=== PATIENT | male | born 1955 | race African-American/Black ===

== ENCOUNTER 2017-06-15 09:36 | Outpatient (CLI) | payer BC ==
[2017-06-15 09:48] LABS: Hematocrit 44.7 % (35.5-45.6); Hemoglobin 15.2 gm/dl (11.8-15.2); Mean Corpuscular HGB Conc 34 % (32-34); Mean Corpuscular Hemoglobin 32 pg (28-32); Mean Corpuscular Volume 94 fl (84-94); Platelet Count 186 K/mm3 (140-440); Red Blood Count 4.78 M/mm3 (3.65-5.03); Red Cell Distribution Width 13.3 % (13.2-15.2); White Blood Count 4.8 K/mm3 (4.5-11.0)
[2017-06-15 10:14] LABS: Alanine Aminotransferase 27 units/L (7-56); Albumin 4.2 g/dL (3.9-5); Albumin/Globulin Ratio 1.4 %; Alkaline Phosphatase 65 units/L (35-129); Anion Gap 16 mmol/L; BUN/Creatinine Ratio 13; Blood Urea Nitrogen 12 mg/dL (9-20); Calcium 9.1 mg/dL (8.4-10.2); Carbon Dioxide 28 mmol/L (22-30); Chloride 102.1 mmol/L (98-107); Cholesterol 214 mg/dL (50-199); Glucose 106 mg/dL (75-100); HDL Cholesterol 49 mg/dL (40-59); LDL Cholesterol,Direct 126 mg/dL (50-130); Potassium 4.1 mmol/L (3.6-5.0); Sodium 142 mmol/L (137-145); Total Protein 7.2 g/dL (6.3-8.2); Triglycerides 198 mg/dL (2-149)
== END 2017-06-15 09:37 | disposition home or self-care (01) ==
LOC: LAB 09:36
DX: Z00.00 Encounter for general adult medical examination without abnormal findings (principal)
CPT/HCPCS: 36415; 80053; 80061; 84443; 85027

== ENCOUNTER 2017-06-23 09:30 | Outpatient (CLI) | payer BC | END 2017-06-23 09:31 | disposition home or self-care (01) | LOC: LAB 09:30 | DX: Z12.5 Encounter for screening for malignant neoplasm of prostate (principal) | CPT/HCPCS: 36415; 84153 ==

== ENCOUNTER 2017-08-04 10:05 | Day surgery (SDC) | payer BC ==
[~2017-08-04 10:05] MED LIST: WATER FOR IRRIG STERILE IR ONE
[2017-08-04] MEDS ORDERED: NACL 0.9% 1000 ML 1,000 ML ONE (10:49)
--- NOTE | 2017-08-04 10:55 | Anesthesia Day of Surgery ---
Anesthesia Day of Surgery - Day of Surgery Patient Examined: Yes Patient H&P Reviewed: Yes Patient is NPO: Yes
--- NOTE | 2017-08-04 10:55 | Anesthesia Consultation ---
Anesthesia Consult and Med Hx Date of service: 08/04/17 - Airway Anesthetic Teeth Evaluation: Poor, Chipped ROM Head & Neck: Adequate Mental/Hyoid Distance: Adequate Mallampati Class: Class I Intubation Access Assessment: Good - Pulmonary Exam CTA: Yes - Cardiac Exam Cardiac Exam: RRR - Pre-Operative Health Status ASA Pre-Surgery Classification: ASA1 Proposed Anesthetic Plan: General - Pulmonary Hx Smoking: No
[2017-08-04] MEDS ORDERED: DIPRIVAN 10 MG/ML IV ONE ×3 (11:54→12:29)
--- NOTE | 2017-08-04 11:54 | History and Physical Report ---
HISTORY OF PRESENT ILLNESS: This is a 61-year-old gentleman in otherwise good health who has been complaining of some abdominal pain and discomfort which is usually worsened with food. Also, because of his age, he is being assessed for a colonoscopy as part of colon polyp screening. His last colonoscopy was more than 10 years ago. He needs to have an EGD and a colonoscopy done. ALLERGIES: He has no known allergies. SOCIAL HISTORY: Rarely drinks alcohol. No history of smoking. He has had his flu shots. MEDICATIONS: His only medication includes low dose aspirin. FAMILY HISTORY: The patient's mother had a history of lung cancer. PHYSICAL EXAMINATION: VITAL SIGNS: He is afebrile, blood pressure 145/108, pulse is 64. Height is 6 feet, weight is 207 pounds. HEENT: Shows no JVD. LUNGS: Clear to auscultation. CARDIOVASCULAR: Normal. ABDOMEN: Soft. Bowel sounds present. NEUROLOGIC: He is otherwise alert and oriented. ASSESSMENT AND PLAN: Epigastric pain, rule out peptic ulcer disease, and colon polyp screening. Plan to do an EGD and a colonoscopy at [facility] on 08/04/2017. JOB# [id number] BRISEYDA/KONG
[2017-08-04] MEDS ORDERED: WATER FOR IRRIG STERILE ONE (11:56)
[2017-08-04] MEDS ORDERED: NACL 0.9% 1000 ML 1,000 ML IV SCH (12:00)
--- NOTE | 2017-08-04 12:47 | Procedure Note ---
Date of procedure: 08/04/17 Pre-op diagnosis: Abdominal Pain/ Colon Polyp Screening Post-op diagnosis: other (Gastric Ulcer/Gastritis/Esophagitis/No Colon Polyps noted/Mild to Moderate Internal Hemorrhoids noted/ No Diverticular Disease noted ) Anesthesia: MAC Surgeon: ELVIS GAYTAN Estimated blood loss: minimal Pathology: list Specimen disposition: to lab Condition: stable Disposition: same day (Avoid aspirin and aspirin related products for 4 days and follow up in 1 to 2 weeks ([phone]). Treat patient with Omeprazole)
[2017-08-04 13:19] VITALS: BP 127/76
--- NOTE | 2017-08-04 14:12 | Post Anesthesia Evaluation ---
- Post Anesthesia Evaluation Patient Participated: Yes Airway Patent: Yes Stable Respiratory Function: Yes Nausea/Vomiting: No Temp > 96.8F: Yes Pain Manageable: Yes Adequeate Hydration: Yes Anesthesia Complications: No
[2017-08-04] MEDS ORDERED: WATER FOR IRRIG STERILE IR ONE (14:52)
--- NOTE | 2017-08-04 19:20 | Operative Report ---
A 61-year-old gentleman who had a colonoscopy done as part of colon polyp screening. DESCRIPTION OF PROCEDURE: The procedure was done after getting informed consent with MAC anesthesia. Initial rectal exam was unremarkable. Instrument was passed through the rectum into the cecum, which was identified with ileocecal valve and appendiceal orifice. Visualization was fair to good. Cecum, ascending colon, transverse colon, descending colon and sigmoid showed normal mucosa. In the rectum showed mild to moderate internal hemorrhoids on the retroverted view. There was no evidence of any polyps, colitis or diverticular disease. No biopsies were done. There was no bleeding associated with the colonoscopy or no complications with the colon. ASSESSMENT: Colon polyp screening, no colon polyps noted and mild to moderate internal hemorrhoids. Previous EGD had shown presence of a gastric ulcer, gastritis and esophagitis. The patient will be treated with PPI. Encouraged to take probiotics. Avoid aspirin and aspirin-related products for the next few days and follow up in the office in about a week's time. JOB# [id number] BRISEYDA/KONG
--- NOTE | 2017-08-05 02:24 | Operative Report ---
PROCEDURE: EGD with biopsy. INDICATIONS: This is a 61-year-old otherwise healthy gentleman who does have a history of taking aspirin on a regular basis, who lately has been having abdominal pain worsened with intake of food. EGD was done to make sure there was not any significant upper GI pathology present. The procedure was done after getting an informed consent with MAC anesthesia. DESCRIPTION OF PROCEDURE: Instrument was passed through the hypopharynx into the esophagus, which showed moderate distal erosive esophagitis. Photodocumentation and biopsy was obtained. Clean based 4 x 3 mm ulcer was noted in the lesser curvature. Photodocumentation and biopsies were obtained from the edge of the ulcer. The pylorus was patent. The duodenum in the first and second portion appeared normal. Biopsy was also done from the gastric antrum, the gastric body, and angular incisure for H. pylori and atrophic gastritis. There was minimal bleeding from the biopsy site. No complications associated with the procedure. ASSESSMENT: Abdominal pain, gastric ulcer in the lesser curvature, gastritis, moderate distal erosive esophagitis, patent pylorus. PLAN: To treat the patient with PPI and have the patient avoid aspirin and aspirin-related products for the next few days. Because of the patient's age, a colonoscopy will also be done as part of colon polyp screening. JOB# [id number] BRISEYDA/KONG
== END 2017-08-04 10:06 | disposition home or self-care (01) ==
LOC: GIO 10:05
DX: Z12.11 Encounter for screening for malignant neoplasm of colon (principal); K25.9 Gastric ulcer, unspecified as acute or chronic, without hemorrhage or perforation
CPT/HCPCS: 43239; 45378; 88305; 88342; J2704; J7030

== ENCOUNTER 2018-01-04 10:52 | Outpatient (CLI) | payer BC ==
--- NOTE | 2018-01-05 01:15 | Treadmill Report ---
THALLIUM STRESS TEST REPORT REASON FOR ECHO: The patient exercised for 11 minutes of a Rajiv protocol, reaching stage 4 and achieving 12 mets. There was no chest pain with exercise. Heart rate and blood pressure response were normal. There were no ST changes of ischemia. No significant exercise-induced dysrhythmias. The perfusion study demonstrates normal left ventricular chamber size, gated SPECT demonstrates normal left ventricular systolic function with ejection fraction of 53%. There is homogeneous uptake of the tracer with a small fixed basal inferior defect, worse on the resting study. No reversible defects identified. CONCLUSION: 1. Very good exercise capacity. 2. No chest pain, no ST changes, and no dysrhythmias at high level exercise capacity. 3. Small fixed basal inferior defect appears consistent with diaphragmatic attenuation artifact. 4. No reversible ischemia demonstrated on this study. 5. Negative study. JOB# [id number] CA/NTS
== END 2018-01-04 10:53 | disposition home or self-care (01) ==
LOC: CARD 10:52
PROVIDERS: ATTEND Internal Medicine Cardiovascular Disease
DX: R55 Syncope and collapse (principal); R00.1 Bradycardia, unspecified; E78.5 Hyperlipidemia, unspecified; I63.9 Cerebral infarction, unspecified
CPT/HCPCS: 78452; 93017; A9502

== ENCOUNTER 2018-04-09 07:15 | Outpatient (CLI) | payer BC ==
[2018-04-09 08:08] LABS: Chol/HDL Ratio 4.52 %
== END 2018-04-09 07:16 | disposition home or self-care (01) ==
LOC: LAB 07:15
PROVIDERS: ATTEND Internal Medicine
DX: Z00.01 Encounter for general adult medical examination with abnormal findings (principal); R73.9 Hyperglycemia, unspecified; E78.5 Hyperlipidemia, unspecified; E55.9 Vitamin D deficiency, unspecified; E78.00 Pure hypercholesterolemia, unspecified
CPT/HCPCS: 36415; 80061; 82306; 83036; 84439; 84443

== ENCOUNTER 2018-12-13 09:07 | Outpatient (CLI) | payer BC ==
[2018-12-13 10:27] LABS: Hematocrit 46.6 % (35.5-45.6); Mean Corpuscular HGB Conc 34 % (32-34); Mean Corpuscular Volume 95 fl (84-94); Platelet Count 196 K/mm3 (140-440); Red Blood Count 4.93 M/mm3 (3.65-5.03); Red Cell Distribution Width 13.6 % (13.2-15.2)
[2018-12-13 11:17] LABS: Alanine Aminotransferase 17 units/L (7-56); Albumin 4.3 g/dL (3.9-5); BUN/Creatinine Ratio 16; Blood Urea Nitrogen 16 mg/dL (9-20); Calcium 9.3 mg/dL (8.4-10.2); Chol/HDL Ratio 4.05 %; HDL Cholesterol 51 mg/dL (40-59); Hemolysis Index 3; LDL Cholesterol,Direct 142 mg/dL (50-130)
[2018-12-17 20:53] LABS: Vitamin D, 25-OH, D2 <4 ng/mL
== END 2018-12-13 09:08 | disposition home or self-care (01) ==
LOC: LAB 09:07
PROVIDERS: ATTEND Internal Medicine
DX: Z13.29 Encounter for screening for other suspected endocrine disorder (principal); Z13.21 Encounter for screening for nutritional disorder; E78.5 Hyperlipidemia, unspecified; R73.03 Prediabetes
CPT/HCPCS: 36415; 80053; 80061; 82306; 82607; 83036; 84153; 84443; 85027

== ENCOUNTER 2019-03-22 06:31 | Emergency (ER) | payer BC ==
[2019-03-22 06:40] VITALS: BP 128/85
[2019-03-22] MEDS ORDERED: DEPO-Medrol IM ONE (07:19)
[2019-03-22] MEDS ORDERED: PEPCID PO ONE (07:19)
--- NOTE | 2019-03-22 07:19 | Emergency Department Report ---
HPI - General Chief Complaint: Allergic Reaction Time Seen by Provider: 03/22/19 07:09 - HPI HPI: 63 YO WHO COMES IN WITH GENERALIZED URTICARIAL RASH P EATING A PROTEIN BAR; THE BAR IS NEW OVER THE LAST FEW DAYS. NO OTHER KNOWN ALLERGEN. ABC INTACT. VSS. NO SOB OR WHEEZING. AMBULATORY. TOOK BENADRYL AND PREDNISONE POST DOC FELLOWSHIP. ED Past Medical Hx - Past Medical History Previous Medical History?: No Hx Hypertension: ("ELEVATED IN DOCTOR OFFICE, NO OFFICIAL DIAGNOSIS") Hx Congestive Heart Failure: No Hx Diabetes: No (ELEVATED A1C, NO OFFICIAL DIAGNOSIS) Hx Asthma: No Hx COPD: No - Surgical History Past Surgical History?: Yes Additional Surgical History: cervical surgery for neck fx - Family History Family history: no significant - Social History Smoking Status: Current Some Day Smoker Substance Use Type: None - Medications Home Medications: Home Medications Medication Instructions Recorded Confirmed Last Taken Type Acyclovir [Zovirax Tab] 400 mg PO Q8H 11/08/17 11/08/17 11/08/17 History Fenofibrate [Lipofen] 50 mg PO QDAY 11/08/17 11/08/17 11/08/17 History Multivitamin Tab [Multiple Vitamin 1 each PO QDAY 11/08/17 11/08/17 11/08/17 History TAB (Theragran)] [facility]-3 Fatty Acids/Fish Oil [Fish 1 each PO DAILY 11/08/17 11/08/17 11/08/17 History Oil] ED Review of Systems ROS: Stated complaint: ALLERGIC REACTION Other details as noted in HPI Comment: All other systems reviewed and negative Physical Exam - Physical Exam Vital Signs: Vital Signs 03/22/19 06:38 Temperature 97.7 F Pulse Rate 98 H Respiratory 18 Rate Blood Pressure 128/85 O2 Sat by Pulse 91 Oximetry Physical Exam: ABC INTACT S1S2 LUNGS CTA NO FOCAL DEF AMBULATORY ED Course Vital Signs 03/22/19 06:38 Temperature 97.7 F Pulse Rate 98 H Respiratory 18 Rate Blood Pressure 128/85 O2 Sat by Pulse 91 Oximetry ED Medical Decision Making - Medical Decision Making GIVEN DEPOMEDROL AND PEPCID VSS ABC INTACT SAT ON PROVIDER EXAM 99 ON ROOM AIR; HR 90 DC HOME WITH DC PLAN OF CARE. Vital Signs 03/22/19 06:38 Temperature 97.7 F Pulse Rate 98 H Respiratory 18 Rate Blood Pressure 128/85 O2 Sat by Pulse 91 Oximetry - Differential Diagnosis ALLERGIC REACTION Critical care attestation.: If time is entered above; I have spent that time in minutes in the direct care of this critically ill patient, excluding procedure time. ED Disposition Clinical Impression: Allergic reaction Disposition: DC-01 TO HOME OR SELFCARE Is pt being admited?: No Does the pt Need Aspirin: No Condition: Stable Instructions: Allergies (ED) Additional Instructions: CONTINUE OVER THE COUNTER BENADRYL AND PEPCID TO DECREASE HISTAMINE AND ITCHING FOLLOW UP WITH PCP OR PRINCIPAL CLOUD ARCHITECT IF PERSISTS Referrals: TOMMY LOVE MD [Staff Physician] - 3-5 Days Time of Disposition: 07:20
== END 2019-03-22 08:06 | disposition home or self-care (01) ==
LOC: ED 06:31
DX: T78.40XA Allergy, unspecified, initial encounter (principal); F17.200 Nicotine dependence, unspecified, uncomplicated; Z79.899 Other long term (current) drug therapy; Z91.013 Allergy to seafood; Z88.6 Allergy status to analgesic agent
CPT/HCPCS: 96372; 99282; J1040

== ENCOUNTER 2019-09-10 15:04 | Emergency (ER) | payer BC ==
--- NOTE | 2019-09-10 15:27 | Emergency Department Report ---
Blank Doc - Documentation Documentation: 63-year-old male that presents with right femur pain s/p fall. This initial assessment/diagnostic orders/clinical plan/treatment(s) is/are subject to change based on patient's health status, clinical progression and re- assessment by fellow clinical providers in the ED. Further treatment and workup at subsequent clinical providers discretion. Patient/guardians urged not to elope from the ED as their condition may be serious if not clinically assessed and managed. Initial orders include: 1- Patient sent to [facility] for further evaluation and treatment 2- xrays
[2019-09-10 15:28] VITALS: BP 142/87
--- NOTE | 2019-09-10 16:26 | XRay Report ---
RIGHT FEMUR HISTORY: Pain after fall. COMPARISON: None. TECHNIQUE: 2 views of the right femur were obtained. FINDINGS: Bones: No fracture or dislocation. Joint spaces: Maintained. Soft tissues: No significant abnormality. Additional findings: None. IMPRESSION: 1. No significant abnormality. Signer Name: Eren Akers MD Signed: 09/10/2019 4:21 PM Workstation Name: [id number]
--- NOTE | 2019-09-10 19:28 | Emergency Department Report ---
ED Lower Extremity HPI - General Chief Complaint: Fall Stated Complaint: FALL INJURY/ RT FIMER PAIN Time Seen by Provider: 09/10/19 15:26 Source: patient Mode of arrival: Ambulatory Limitations: No Limitations - History of Present Illness Initial Comments: Patient is a 63-year-old male presents the emergency room after a fall that occurred 2 days ago. He states that he was working in the [employer] and fell partially between the attic stairs. He states he fell onto his right lateral thigh. He denies any abrasions or lacerations. He denies any loss of consciousness and did not hit his head. He has been ambulatory with some discomfort upon incline or walking up the steps. He denies ever injuring in the past. He denies any past medical history or allergies to medications. pt states he took ibuprofen at home two days ago and did not have a reaction. he states he has also eaten shellfish and not had a reaction. - Related Data Home Medications Medication Instructions Recorded Confirmed Last Taken Acyclovir [Zovirax Tab] 400 mg PO Q8H 11/08/17 11/08/17 11/08/17 Fenofibrate [Lipofen] 50 mg PO QDAY 11/08/17 11/08/17 11/08/17 Multivitamin Tab [Multiple Vitamin 1 each PO QDAY 11/08/17 11/08/17 11/08/17 TAB (Theragran)] [place]-3 Fatty Acids/Fish Oil [Fish 1 each PO DAILY 11/08/17 11/08/17 11/08/17 Oil] Previous Rx's Medication Instructions Recorded Last Taken Type Naproxen [EC-Naprosyn] 375 mg PO BID PRN #14 tablet. 09/10/19 Unknown Rx Tizanidine HCl [Zanaflex 2mg CAP] 2 mg PO QHS PRN #10 capsule 09/10/19 Unknown Rx Allergies Allergy/AdvReac Type Severity Reaction Status Date / Time shellfish derived Allergy Rash Verified 08/04/17 11:06 ibuprofen AdvReac Rash Verified 08/04/17 11:06 ED Review of Systems ROS: Stated complaint: FALL INJURY/ RT FIMER PAIN Other details as noted in HPI Comment: All other systems reviewed and negative ED Past Medical Hx - Past Medical History Previous Medical History?: No Hx Hypertension: ("ELEVATED IN DOCTOR OFFICE, NO OFFICIAL DIAGNOSIS") Hx Congestive Heart Failure: No Hx Diabetes: (ELEVATED A1C, NO OFFICIAL DIAGNOSIS) Hx Asthma: No Hx COPD: No - Surgical History Past Surgical History?: Yes Additional Surgical History: cervical surgery for neck fx, C4 and C5 - Social History Smoking Status: Never Smoker Substance Use Type: Alcohol - Medications Home Medications: Home Medications Medication Instructions Recorded Confirmed Last Taken Type Acyclovir [Zovirax Tab] 400 mg PO Q8H 11/08/17 11/08/17 11/08/17 History Fenofibrate [Lipofen] 50 mg PO QDAY 11/08/17 11/08/17 11/08/17 History Multivitamin Tab [Multiple Vitamin 1 each PO QDAY 11/08/17 11/08/17 11/08/17 History TAB (Theragran)] [place]-3 Fatty Acids/Fish Oil [Fish 1 each PO DAILY 11/08/17 11/08/17 11/08/17 History Oil] Naproxen [EC-Naprosyn] 375 mg PO BID PRN #14 tablet.dr 09/10/19 Unknown Rx Tizanidine HCl [Zanaflex 2mg CAP] 2 mg PO QHS PRN #10 capsule 09/10/19 Unknown Rx ED Physical Exam - General Limitations: No Limitations General appearance: alert, in no apparent distress - Head Head exam: Present: atraumatic, normocephalic - Eye Eye exam: Present: normal appearance - ENT ENT exam: Present: mucous membranes moist - Extremities Exam Extremities exam: Present: other (ttp over the right lateral thigh, FROM of the RLE, no obvious deformity, no joint laxity, neurovascularly intact) - Neurological Exam Neurological exam: Present: alert, oriented X3 - Psychiatric Psychiatric exam: Present: normal affect, normal mood - Skin Skin exam: Present: warm, dry, intact ED Course Vital Signs 09/10/19 15:27 Temperature 97.5 F L Pulse Rate 72 Respiratory 20 Rate Blood Pressure 142/87 O2 Sat by Pulse 97 Oximetry ED Lower Extremity MDM - Radiology Data Radiology results: report reviewed Fluoro Time In Minutes: RIGHT FEMUR HISTORY: Pain after fall. COMPARISON: None. TECHNIQUE: 2 views of the right femur were obtained. FINDINGS: Bones: No fracture or dislocation. Joint spaces: Maintained. Soft tissues: No significant abnormality. Additional findings: None. IMPRESSION: 1. No significant abnormality. Signer Name: Eren Lebron MD Signed: 09/10/2019 4:21 PM Workstation Name: [id number] Transcribed By: REF Dictated By: EREN LEBRON MD Electronically Authenticated By: EREN LEBRON MD Signed Date/Time: 09/10/191620 DD/ 19 TD/TT: - Medical Decision Making Patient is a 63-year-old male presents the emergency room after a fall that occurred 2 days ago. He states that he was working in the [employer] and fell partially between the attic stairs. He states he fell onto his right lateral thigh. He denies any abrasions or lacerations. He denies any loss of consciousness and did not hit his head. He has been ambulatory with some discomfort upon incline or walking up the steps. He denies ever injuring in the past. He denies any past medical history or allergies to medications. pt states he took ibuprofen at home two days ago and did not have a reaction. he states he has also eaten shellfish and not had a reaction. on exam: ttp over the right lateral thigh, FROM of the RLE, no obvious deformity, no joint laxity, neurovascularly intact. XR right femur: 1. No significant abnormality. given prescription for naproxen and flexeril. advised to pt please take medication as prescribed as needed. Do not drive or operate heavy machinery while taking muscle relaxer due to potential for drowsiness. May use ice for 15 minutes at a time, rest, stretching, elevation of the leg. Follow-up with orthopedic doctor if symptoms are not improving. Return to the emergency room immediately for any new or worsening symptoms. - Differential Diagnosis strain, sprain, fx, dislocation, contusion Critical care attestation.: If time is entered above; I have spent that time in minutes in the direct care of this critically ill patient, excluding procedure time. ED Disposition Clinical Impression: Pain of right lateral upper thigh Disposition: DC-01 TO HOME OR SELFCARE Is pt being admited?: No Does the pt Need Aspirin: No Condition: Stable Instructions: Muscle Strain (ED), Arthralgia (ED) Additional Instructions: Please take medication as prescribed as needed. Do not drive or operate heavy machinery while taking muscle relaxer due to potential for drowsiness. May use ice for 15 minutes at a time, rest, stretching, elevation of the leg. Follow-up with orthopedic doctor if symptoms are not improving. Return to the emergency room immediately for any new or worsening symptoms. Prescriptions: Tizanidine HCl [Zanaflex 2mg CAP] 2 mg PO QHS PRN #10 capsule PRN Reason: Muscle Spasm Naproxen [EC-Naprosyn] 375 mg PO BID PRN #14 tablet.dr SOTO Reason: pain Referrals: ANNETTE KRISHNAMURTHY MD [Staff Physician] - 2-3 Days Time of Disposition: 19:28 Print Language: LATVIAN
== END 2019-09-10 19:35 | disposition home or self-care (01) ==
LOC: ED 15:04
DX: M79.651 Pain in right thigh (principal); I10 Essential (primary) hypertension; Z79.899 Other long term (current) drug therapy; Z91.010 Allergy to peanuts; Z88.6 Allergy status to analgesic agent

== ENCOUNTER 2019-12-19 10:32 | Outpatient (CLI) | payer BC ==
[2019-12-19 11:06] LABS: Basophils % (Auto) 0.9 % (0.0-1.8); Eosinophils # (Auto) 0.1 K/mm3 (0.0-0.4); Hemoglobin 15.4 gm/dl (11.8-15.2); Lymphocytes # (Auto) 1.6 K/mm3 (1.2-5.4); Lymphocytes % (Auto) 41.4 % (13.4-35.0); Mean Corpuscular HGB Conc 34 % (32-34); Mean Corpuscular Volume 93 fl (84-94); Monocytes # (Auto) 0.6 K/mm3 (0.0-0.8); Monocytes % (Auto) 14.1 % (0.0-7.3); Platelet Count 183 K/mm3 (140-440); Red Blood Count 4.93 M/mm3 (3.65-5.03); Red Cell Distribution Width 13.3 % (13.2-15.2)
[2019-12-19 11:47] LABS: Alanine Aminotransferase 19 units/L (7-56); Albumin 4.5 g/dL (3.9-5); BUN/Creatinine Ratio 18; Blood Urea Nitrogen 18 mg/dL (9-20); Calcium 9.6 mg/dL (8.4-10.2); Chol/HDL Ratio 3.94 %; HDL Cholesterol 51 mg/dL (40-59); Hemolysis Index 3; LDL Cholesterol,Direct 134 mg/dL (50-130)
[2019-12-22 11:58] LABS: Vitamin D, 25-OH, D2 <4 ng/mL
== END 2019-12-19 10:33 | disposition home or self-care (01) ==
LOC: LAB 10:32
PROVIDERS: ATTEND Internal Medicine
DX: Z12.5 Encounter for screening for malignant neoplasm of prostate (principal); Z13.29 Encounter for screening for other suspected endocrine disorder; Z13.21 Encounter for screening for nutritional disorder; R73.03 Prediabetes; E78.5 Hyperlipidemia, unspecified
CPT/HCPCS: 36415; 80053; 80061; 82306; 82607; 83036; 84153; 84443; 85025

== ENCOUNTER 2020-12-22 09:35 | Outpatient (CLI) | payer BC ==
[2020-12-22 10:15] LABS: Basophils % (Auto) 0.8 % (0.0-1.8); Eosinophils # (Auto) 0.1 K/mm3 (0.0-0.4); Eosinophils % (Auto) 2.5 % (0.0-4.3); Hematocrit 46.9 % (35.5-45.6); Lymphocytes # (Auto) 1.4 K/mm3 (1.2-5.4); Lymphocytes % (Auto) 23.4 % (13.4-35.0); Mean Corpuscular HGB Conc 34 % (32-34); Mean Corpuscular Volume 94 fl (84-94); Monocytes # (Auto) 0.7 K/mm3 (0.0-0.8); Monocytes % (Auto) 12.4 % (0.0-7.3); Platelet Count 202 K/mm3 (140-440); Red Blood Count 5.02 M/mm3 (3.65-5.03); Red Cell Distribution Width 13.7 % (13.2-15.2)
[2020-12-22 10:38] LABS: Alanine Aminotransferase 22 units/L (7-56); Albumin 4.7 g/dL (3.9-5); BUN/Creatinine Ratio 23; Blood Urea Nitrogen 23 mg/dL (9-20); Calcium 10.1 mg/dL (8.4-10.2); HDL Cholesterol 56 mg/dL (40-59); Hemolysis Index 12; LDL Cholesterol,Direct 159 mg/dL (50-130)
[2020-12-25 16:17] LABS: Vitamin D, 25-OH, D2 <4 ng/mL
== END 2020-12-22 09:36 | disposition home or self-care (01) ==
LOC: LAB 09:35
PROVIDERS: ATTEND Internal Medicine
DX: Z00.00 Encounter for general adult medical examination without abnormal findings (principal); R73.03 Prediabetes; E78.5 Hyperlipidemia, unspecified; Z13.21 Encounter for screening for nutritional disorder; Z12.5 Encounter for screening for malignant neoplasm of prostate
CPT/HCPCS: 36415; 80053; 80061; 82306; 83036; 84153; 84443; 85025

== ENCOUNTER 2021-01-15 10:20 | Day surgery (SDC) | payer BC ==
[~2021-01-15 10:20] MED LIST changes: +SODIUM CHLORIDE 0.9% 1000 ML 1,000 ML IV SCH; -WATER FOR IRRIG STERILE IR ONE
--- NOTE | 2021-01-15 11:20 | Anesthesia Consultation ---
Anesthesia Consult and Med Hx Date of service: 01/15/21 - Airway Anesthetic Teeth Evaluation: Good ROM Head & Neck: Adequate Mental/Hyoid Distance: Adequate Mallampati Class: Class III Intubation Access Assessment: Possibly Difficult - Pre-Operative Health Status ASA Pre-Surgery Classification: ASA1 Proposed Anesthetic Plan: MAC - Pulmonary Hx Smoking: No Hx Respiratory Symptoms: No - Cardiovascular System Hx Hypertension: No - Central Nervous System CVA: No - Endocrine Hx Renal Disease: No Hx Liver Disease: No Hx Insulin Dependent Diabetes: No Hx Non-Insulin Dependent Diabetes: No Hx Thyroid Disease: No - Other Systems Hx Obesity: No - Additional Comments Anesthesia Medical History Comments: No hx anesthetic complications. Reports no allergy to ibuprofen; only to ibuprofen with blue dye.
--- NOTE | 2021-01-15 11:20 | Anesthesia Day of Surgery ---
Anesthesia Day of Surgery - Day of Surgery Patient Examined: Yes Patient H&P Reviewed: Yes Patient is NPO: Yes
[2021-01-15] MEDS ORDERED: propofoL 200 MG/20 ML VIAL IV ONE ×4 (12:37→13:22)
--- NOTE | 2021-01-15 14:02 | Procedure Note ---
Date of procedure: 01/15/21 Pre-op diagnosis: Dyspepsia/ H/O Gastric Ulcer/ Colon Polyp Screening Post-op diagnosis: other (No Gastric Ulcer at present/ Mild,Distal Esophagitis/ Small,Hiatal Hernia/ Gastrtitis/ Normal Colon and terminal Ileal Mucosa/ No colon Polyp or Divertyicular Disease noted/ Minor Internal Hemorrhoid) Procedure: EGD with Biopsy and Colonoscopy Anesthesia: [facility] Surgeon: ELVIS GAYTAN Estimated blood loss: minimal Pathology: list Specimen disposition: to lab Condition: stable Disposition: same day (Avoid aspirin and NSAID for 4 days; otherwise resume home medication. Treat with PPI; follow up in 1 to 2 weeks ([phone]).)
--- NOTE | 2021-01-15 15:37 | Operative Report ---
DATE OF SURGERY: 01/15/2021 PROCEDURE: Colonoscopy. INDICATIONS: This is a 65-year-old gentleman who had EGD done prior to the colonoscopy. He has a prior history of gastric ulcer, but none at present. He was noted to have mild distal esophagitis, gastritis and a small hiatal hernia. Biopsy was done to rule out for H. pylori and also to assess for the severity of the erosive esophagitis. Colonoscopy was done to make sure there was not any colon polyp present. Initial rectal examination was unremarkable. DESCRIPTION OF PROCEDURE: The instrument was passed through the rectum onto the cecum, which was identified with ileocecal valve and appendiceal orifice. Visualization was fair to good. The terminal ileum was intubated, showed normal mucosa. Cecum, ascending colon, transverse colon, descending colon and sigmoid, all showed normal mucosa and the rectum showed some minor internal hemorrhoid on the retroverted view. There was no colon polyps, or diverticular disease noted. The terminal ileum showed normal mucosa. There was no bleeding associated with the colonoscopy. ASSESSMENT: Colon polyp screening, no colon polyps noted. Minor internal hemorrhoid. No diverticular disease. Normal terminal ileal mucosa. PLAN: To resume home medication. The patient will be asked to take PPI for about 12 weeks because of the EGD findings of esophagitis and gastritis. To avoid aspirin and aspirin-related products for the next 4 days and follow up in the office in 1-2 weeks' time. TID: [id number] RECEIPT: [id number] BRISEYDA/KADIE
--- NOTE | 2021-01-15 15:37 | Operative Report ---
DATE OF SURGERY: 01/15/2021 PROCEDURE: EGD with biopsy. INDICATIONS: This is a 65-year-old gentleman who has a prior history of a gastric ulcer and H. pylori gastritis. He had been having some dyspeptic symptoms. EGD was done to assess for the problem. DESCRIPTION OF PROCEDURE: Procedure was done after getting informed consent with MAC anesthesia. Instrument was passed through the hypopharynx into the esophagus, which showed some mild distal esophagitis. Biopsy was done from the distal esophagus to assess for the severity of the erosive esophagitis. The stomach showed gastritis, but no ulcers were noted either in the straight or the retroverted view. The patient has a prior history of H. pylori. Biopsies were done from the gastric antrum, gastric body and angular incisura to rule out for H. pylori as well as for atrophic gastritis. The pylorus was patent. The duodenum in the first and second portion appeared normal. There was no evidence of any duodenal ulcer noted. There was minimal bleeding from the biopsy sites. No complications associated with the procedure. ASSESSMENT: Dyspepsia; history of gastric ulcer, none now; gastritis; esophagitis which is mild; small hiatal hernia. PLAN: To treat the patient with PPI. Have the patient avoid aspirin or aspirin-related products for the next few days. A colonoscopy will be done as part of colon polyp screening. The patient will be asked to follow up in the office in 1-2 weeks' time. Procedure was done in the GI lab with assistance of the GI lab team, which included the GI nurse, the fish and wildlife technician and with assistance of Anesthesia. TID: [id number] RECEIPT: [id number] BRISEYDA/NETTA
[2021-01-15 16:12] VITALS: BP 119/73
== END 2021-01-15 10:21 | disposition home or self-care (01) ==
LOC: GIO 10:20
DX: K59.04 Chronic idiopathic constipation (principal); R10.13 Epigastric pain; K64.8 Other hemorrhoids; K44.9 Diaphragmatic hernia without obstruction or gangrene; K29.70 Gastritis, unspecified, without bleeding; K31.89 Other diseases of stomach and duodenum; E78.5 Hyperlipidemia, unspecified; Z91.013 Allergy to seafood; Z79.899 Other long term (current) drug therapy; Z98.890 Other specified postprocedural states; Z86.73 Personal history of transient ischemic attack (TIA), and cerebral infarction without residual deficits
CPT/HCPCS: 43239; 45378; 88305; 88342; J2704; J7030

== ENCOUNTER 2021-03-09 07:03 | Outpatient (CLI) | payer BC ==
--- NOTE | 2021-03-09 09:12 | Magnetic Resonance Report ---
MRI LEFT KNEE WITHOUT CONTRAST INDICATION / CLINICAL INFORMATION: DISLOCATION OF LEFT KNEE. TECHNIQUE: Multiplanar, multisequence MR images were obtained. No contrast used. COMPARISON: None available. FINDINGS: MEDIAL MENISCUS: There is a degenerative type radial/horizontal tear involving the posterior horn and body. The body is partially extruded. LATERAL MENISCUS: There is a degenerative tear at the lateral meniscus posterior horn/root. The body is partially extruded. ACL: Mucoid degeneration. PCL: Mucoid degeneration. MCL: No significant abnormality. LCL: No significant abnormality. DISTAL IT BAND: No significant abnormality. POSTEROLATERAL CORNER: No significant abnormality. DISTAL QUADRICEPS TENDON: Mild distal quadriceps tendinosis. PATELLAR TENDON: No significant abnormality. PATELLOFEMORAL ALIGNMENT: No significant abnormality. ARTICULAR CARTILAGE: Diffuse chondrosis. There is advanced cartilage loss at the patella. JOINT SPACE: No significant joint effusion or synovitis. No significant popliteal cyst. No intra-shady cular bodies. BONES: No significant bone marrow edema. No fracture. No osseous lesion. SOFT TISSUES: No significant abnormality. ADDITIONAL FINDINGS: None. IMPRESSION: 1. No MRI evidence of recent dislocation. 2. 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 Signer Name: Jon Cabrera MD Signed: 03/09/2021 9:07 AM Workstation Name: [id number]
== END 2021-03-09 07:04 | disposition home or self-care (01) ==
LOC: MRI 07:03
PROVIDERS: ATTEND Internal Medicine
DX: S83.105A Unspecified dislocation of left knee, initial encounter (principal); S83.282A Other tear of lateral meniscus, current injury, left knee, initial encounter; S83.242A Other tear of medial meniscus, current injury, left knee, initial encounter; M17.12 Unilateral primary osteoarthritis, left knee; X58.XXXA Exposure to other specified factors, initial encounter; Y93.89 Activity, other specified; Y92.89 Other specified places as the place of occurrence of the external cause; Y99.8 Other external cause status
CPT/HCPCS: 73721

== ENCOUNTER 2021-03-23 14:03 | Outpatient (CLI) | payer BC ==
--- NOTE | 2021-03-23 14:53 | XRay Report ---
RIGHT KNEE HISTORY: Pain COMPARISON: None. TECHNIQUE: 2 views of the right knee obtained. FINDINGS: Bones: No acute fracture or dislocation. Mild patellofemoral osteoarthritic change. Joint spaces: Maintained. Soft tissues: No significant abnormality. Additional findings: None. IMPRESSION: Right knee without evidence of acute osseous injury. Mild patellofemoral osteoarthritic change. Signer Name: Eliel Jang MD Signed: 03/23/2021 2:49 PM Workstation Name: [id number]
== END 2021-03-23 14:04 | disposition home or self-care (01) ==
LOC: XRAY 14:03
PROVIDERS: ATTEND Internal Medicine
DX: M17.11 Unilateral primary osteoarthritis, right knee (principal)

== ENCOUNTER 2021-03-29 07:06 | Outpatient (CLI) | payer BC ==
--- NOTE | 2021-03-29 09:22 | Magnetic Resonance Report ---
MRI RIGHT KNEE WITHOUT CONTRAST INDICATION / CLINICAL INFORMATION: UNSPECIFIED SUBLUXATION OF RIGHT KNEE,INITIAL ENCOUNTER S83.101A. COMPARISON: Right knee films dated 03/23/2021 TECHNIQUE: Multiplanar, multisequence MR images were obtained. FINDINGS: ACL: No significant abnormality. PCL: No significant abnormality. DISTAL QUADRICEPS TENDON: No significant abnormality. PATELLAR TENDON: No significant abnormality. MEDIAL MENISCUS: There is a complex tear in the body of the medial meniscus with medial extrusion of meniscal tissue. LATERAL MENISCUS: No significant abnormality. POSTEROLATERAL CORNER: No significant abnormality. MCL: No significant abnormality. LCL: No significant abnormality. DISTAL IT BAND: No significant abnormality. PATELLOFEMORAL ALIGNMENT: No significant abnormality. ARTICULAR CARTILAGE: There is complete or near complete cartilage loss along the medial facet of the retropatellar cartilage. Advanced cartilage loss is also noted in the medial compartment. JOINT SPACE: A moderate to large joint effusion extends to the suprapatellar bursa. There is unorgani zed fluid dissecting the fascial planes of the upper calf consistent with a ruptured popliteal cyst. No intra-articular bodies. BONES: Focal area of subacute cortical bone marrow edema is identified in the medial femoral condyle measuring up to 1 cm in greatest dimension. No fracture. No osseous lesion. SUBCUTANEOUS SOFT TISSUES: No significant abnormality. ADDITIONAL FINDINGS: None. IMPRESSION: Complex tear in the body of the medial meniscus. Subchondral bone marrow edema in the medial femoral condyle consistent with contusion. Advanced cartilage loss in the medial compartment and medial facet of the retropatellar cartilage. Moderate to large joint effusion. Ruptured popliteal cyst. Signer Name: Andrea Holland Jr, MD Signed: 03/29/2021 9:18 AM Workstation Name: [id number]
== END 2021-03-29 07:07 | disposition home or self-care (01) ==
LOC: MRI 07:06
PROVIDERS: ATTEND Internal Medicine
DX: S83.231A Complex tear of medial meniscus, current injury, right knee, initial encounter (principal); S83.101A Unspecified subluxation of right knee, initial encounter; M25.461 Effusion, right knee; M17.11 Unilateral primary osteoarthritis, right knee; M79.89 Other specified soft tissue disorders; M71.21 Synovial cyst of popliteal space [Baker], right knee; X58.XXXA Exposure to other specified factors, initial encounter; Y93.89 Activity, other specified; Y92.89 Other specified places as the place of occurrence of the external cause; Y99.8 Other external cause status
CPT/HCPCS: 73721

== ENCOUNTER 2021-05-21 09:16 | Emergency (ER) | payer BC, OTHER ==
[2021-05-21 09:32] VITALS: BP 147/93
--- NOTE | 2021-05-21 10:48 | XRay Report ---
LUMBOSACRAL SPINE 3 VIEWS INDICATION: injury to back. COMPARISON: None. IMPRESSION: There is 4 mm anterolisthesis of L4 with respect to L5 which appears to be secondary to degenerative facet arthropathy. The remaining lumbar vertebra are normal in alignment. Moderate mult ilevel discogenic DJD is present with L4-5 and L5-S1 being the most affected levels. There is diffuse facet arthropathy with mild hypertrophic changes. No acute osseous or soft tissue abnormality. Signer Name: Andrea Holland Jr, MD Signed: 05/21/2021 10:44 AM Workstation Name: [id number]
--- NOTE | 2021-05-21 11:04 | Emergency Department Report ---
ED Back Pain/Injury HPI - General Chief Complaint: Back Pain/Injury Stated Complaint: BACK INJURY Time Seen by Provider: 05/21/21 09:53 Source: patient Limitations: No Limitations - History of Present Illness Initial Comments: The patient was evaluated in the emergency department for symptoms described in the history of present illness. He/she was evaluated in the context of the global COVID-19 pandemic, which necessitated consideration that the patient might be at risk for infection with the virus that causes COVID-19. Institutional protocols and algorithms that pertain to the evaluation of patients at risk for COVID-19 are in a state of rapid change based on information released by regulatory bodies including the CDC and federal and state organizations. These policies and algorithms were followed during the patient's care in the emergency department. Please note that these policies, procedures and recommendations changed on a rapid basis. 65-year-old male presents to the emergency room stating that on April 30 while at work he got his back self wedged in between a door. 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 Patient states the back aches constantly. Is worse at night. He states that during the day he has had 3-4 out of 10 and at night is a 7 or 8 out of 10. Patient denies any urinary or bowel incontinent. Patient states he has taken ibuprofen. 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 MD Complaint: back injury - Related Data Home Medications Medication Instructions Recorded Confirmed Last Taken Acyclovir [Zovirax Tab] 400 mg PO Q8H 11/08/17 11/08/17 11/08/17 Fenofibrate [Lipofen] 50 mg PO QDAY 11/08/17 11/08/17 11/08/17 Multivitamin Tab [Multiple Vitamin 1 each PO QDAY 11/08/17 11/08/17 11/08/17 TAB (Theragran)] Dwight-3 Fatty Acids/Fish Oil [Fish 1 each PO DAILY 11/08/17 11/08/17 11/08/17 Oil] Previous Rx's Medication Instructions Recorded Last Taken Type Naproxen [EC-Naprosyn] 375 mg PO BID PRN #14 tablet. 09/10/19 Unknown Rx Tizanidine HCl [Zanaflex 2mg CAP] 2 mg PO QHS PRN #10 capsule 09/10/19 Unknown Rx Pantoprazole [Protonix] 40 mg PO QDAY 30 Days #30 tablet 01/15/21 Unknown Rx Baclofen [Lioresal] 10 mg PO TID #15 tab 05/21/21 Unknown Rx traMADoL [Ultram 50 MG tab] 50 mg PO Q6HR PRN #12 tablet 05/21/21 Unknown Rx Allergies Allergy/AdvReac Type Severity Reaction Status Date / Time shellfish derived Allergy Rash Verified 08/04/17 11:06 ibuprofen AdvReac Rash Verified 08/04/17 11:06 ED Review of Systems ROS: Stated complaint: BACK INJURY Other details as noted in HPI Comment: All other systems reviewed and negative Constitutional: denies: chills, fever Eyes: denies: eye pain, eye discharge, vision change ENT: denies: ear pain, throat pain Respiratory: denies: cough, shortness of breath, wheezing Cardiovascular: denies: chest pain, palpitations Endocrine: no symptoms reported Gastrointestinal: denies: abdominal pain, nausea, diarrhea Genitourinary: denies: urgency, dysuria Musculoskeletal: denies: back pain, joint swelling, arthralgia Skin: denies: rash, lesions Neurological: denies: headache, weakness, paresthesias Psychiatric: denies: anxiety, depression Hematological/Lymphatic: denies: easy bleeding, easy bruising ED Past Medical Hx - Past Medical History Previous Medical History?: No Hx Hypertension: No Hx Congestive Heart Failure: No Hx Diabetes: (ELEVATED A1C, NO OFFICIAL DIAGNOSIS) Hx Liver Disease: No Hx Renal Disease: No - Surgical History Past Surgical History?: Yes Additional Surgical History: cervical surgery for neck fx, C4 and C5 - Social History Smoking Status: Never Smoker - Medications Home Medications: Home Medications Medication Instructions Recorded Confirmed Last Taken Type Acyclovir [Zovirax Tab] 400 mg PO Q8H 11/08/17 11/08/17 11/08/17 History Fenofibrate [Lipofen] 50 mg PO QDAY 11/08/17 11/08/17 11/08/17 History Multivitamin Tab [Multiple Vitamin 1 each PO QDAY 11/08/17 11/08/17 11/08/17 History TAB (Theragran)] Dwight-3 Fatty Acids/Fish Oil [Fish 1 each PO DAILY 11/08/17 11/08/17 11/08/17 History Oil] Naproxen [EC-Naprosyn] 375 mg PO BID PRN #14 tablet.dr 09/10/19 Unknown Rx Tizanidine HCl [Zanaflex 2mg CAP] 2 mg PO QHS PRN #10 capsule 09/10/19 Unknown Rx Pantoprazole [Protonix] 40 mg PO QDAY 30 Days #30 tablet 01/15/21 Unknown Rx Baclofen [Lioresal] 10 mg PO TID #15 tab 05/21/21 Unknown Rx traMADoL [Ultram 50 MG tab] 50 mg PO Q6HR PRN #12 tablet 05/21/21 Unknown Rx ED Physical Exam - General Limitations: No Limitations General appearance: alert, in no apparent distress - Head Head exam: Present: atraumatic, normocephalic - Eye Eye exam: Present: normal appearance - ENT ENT exam: Present: mucous membranes moist - Neck Neck exam: Present: normal inspection - Respiratory Respiratory exam: Present: normal lung sounds bilaterally. Absent: respiratory distress - Cardiovascular Cardiovascular Exam: Present: regular rate, normal rhythm. Absent: systolic murmur, diastolic murmur, rubs, gallop - GI/Abdominal GI/Abdominal exam: Present: soft, normal bowel sounds - Rectal Rectal exam: Present: deferred - Extremities Exam Extremities exam: Present: normal inspection - Back Exam Back exam: Present: normal inspection, full ROM - Neurological Exam Neurological exam: Present: alert, oriented X3 - Psychiatric Psychiatric exam: Present: normal affect, normal mood - Skin Skin exam: Present: warm, dry, intact, normal color. Absent: rash ED Course Vital Signs 05/21/21 09:31 Temperature 98.5 F Pulse Rate 63 Respiratory 18 Rate Blood Pressure 147/93 O2 Sat by Pulse 96 Oximetry ED Medical Decision Making - Radiology Data Radiology results: report reviewed [facility] [address] [place] [address] XRay Report Signed Patient: DIETER RODRÍGUEZ MR#: [id number] : 1955 Acct:[id number] Age/Sex: 65 / M ADM Date: 05/21/21 Loc: ED Attending Dr: Ordering Physician: KADIE ROSE Date of Service: 05/21/21 Procedure(s): XR spine lumbosacral 2-3V Accession Number(s): [id number] cc: KADIE ROSE Fluoro Time In Minutes: LUMBOSACRAL SPINE 3 VIEWS INDICATION: injury to back. COMPARISON: None. IMPRESSION: There is 4 mm anterolisthesis of L4 with respect to L5 which appears to be secondary to degenerative facet arthropathy. The remaining lumbar vertebra are normal in alignment. Moderate multilevel discogenic DJD is present with L4-5 and L5-S1 being the most affected levels. There is diffuse facet arthropathy with mild hypertrophic changes. No acute osseous or soft tissue abnormality. Signer Name: Andrea Holland Jr, MD Signed: 05/21/2021 10:44 AM Workstation Name: [id number] Transcribed By: TTR Dictated By: ANDREA HOLLAND JR, MD Electronically Authenticated By: ANDREA HOLLAND JR, MD Signed Date/Time: 05/21/21 1044 DD/ 1038 TD/TT: - Medical Decision Making 65-year-old male presents to the emergency room stating that on April 30 while at work he got his back self wedged in between a door. 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 Patient states the back aches constantly. Is worse at night. He states that during the day he has had 3-4 out of 10 and at night is a 7 or 8 out of 10. Patient denies any urinary or bowel incontinent. Patient states he has taken ibuprofen. 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 X-ray ordered. Critical care attestation.: If time is entered above; I have spent that time in minutes in the direct care of this critically ill patient, excluding procedure time. ED Disposition Clinical Impression: Discogenic lumbar pain, Back injury Disposition: HOME / SELF CARE / HOMELESS Is pt being admited?: No Does the pt Need Aspirin: No Condition: Stable Instructions: Back Injury Prevention, [id number] Additional Instructions: X-ray shows multilevel discogenic degenerative disc disease. No doing acute. Please take pain medication and muscle relaxant as prescribed is very important you follow-up with the back specialist I have listed 1 below for your convenience. Prescriptions: Baclofen [Lioresal] 10 mg PO TID #15 tab traMADoL [Ultram 50 MG tab] 50 mg PO Q6HR PRN #12 tablet PRN Reason: Pain Referrals: PRIMARY CARE, [Primary Care Provider] - 3-5 Days MAURICIO RANDHAWA II, MD [Staff Physician] - 3-5 Days Time of Disposition: 11:16
== END 2021-05-21 11:37 | disposition home or self-care (01) ==
LOC: ED 09:16
DX: S39.92XA Unspecified injury of lower back, initial encounter (principal); M54.50 Low back pain, unspecified; Z88.6 Allergy status to analgesic agent; Z91.013 Allergy to seafood; Z79.899 Other long term (current) drug therapy; X58.XXXA Exposure to other specified factors, initial encounter; Y93.89 Activity, other specified; Y92.89 Other specified places as the place of occurrence of the external cause; Y99.8 Other external cause status
CPT/HCPCS: 72100; 99283

== ENCOUNTER 2021-06-16 08:51 | Outpatient (CLI) | payer BC | END 2021-06-16 08:52 | disposition home or self-care (01) | LOC: LAB 08:51 | PROVIDERS: ATTEND Internal Medicine | DX: N52.9 Male erectile dysfunction, unspecified (principal) | CPT/HCPCS: 36415; 84403 ==

== ENCOUNTER 2021-06-30 13:55 | Outpatient (CLI) | payer OTHER ==
--- NOTE | 2021-06-30 16:53 | Magnetic Resonance Report ---
MR lumbar spine wo con INDICATION / CLINICAL INFORMATION: 65 years Male; SPONDYLOSTHESIS. TECHNIQUE: Multisequence, multiplanar images of the lumbar spine were obtained. COMPARISON: None available. FINDINGS: ALIGNMENT: There is 5 mm of anterolisthesis at L4-L5 with associated prominent facet joint hypertroph y at. There appears be minimal anterolisthesis at L3-4 with disc desiccation. There is also mild curv ature of the upper lumbar spine, convex toward the left. VERTEBRAE:There is notable degenerative endplate edema on the right at T12-L1. There is milder endpla te edema on the right at L4-5 and on the left at L5-S1. VISUALIZED SPINAL CORD: The distal spinal cord appears to demonstrate appropriate signal intensity an d terminates at L1-2. [id number] ANALYSIS: L1-2: There is a minimal disc bulge without significant central stenosis or foraminal narrowing. L2-3: There is also minimal disc bulge without significant stenosis. L3-4: The broad-based disc bulge and facet joint hypertrophy result in mild degree of spinal stenosis . Additionally, there is mild to moderate foraminal narrowing, greater on the right. L4-5: The degenerative changes result in mild spinal stenosis. Additionally, there is mild to moderat e foraminal narrowing, greater on the left. L5-S1: There is a minimal disc bulge without central spinal stenosis. The left foraminal spondylosis and facet joint hypertrophy result in moderate left foraminal narrowing. PARASPINAL SOFT TISSUES: No significant abnormality. ADDITIONAL FINDINGS: No epidural collections are identified. IMPRESSION: 1. There is 5 mm of anterolisthesis at L4-5 with mild spinal stenosis and mild to moderate foraminal narrowing, greater on the left. 2. There is mild levoscoliosis of the visualized thoracolumbar spine with associated degenerative calixto nges as detailed above. Signer Name: Eliel Lemus MD Signed: 06/30/2021 4:49 PM Workstation Name: [id number]
== END 2021-06-30 13:56 | disposition home or self-care (01) ==
LOC: MRI 13:55
PROVIDERS: ATTEND Orthopaedic Surgery
DX: M51.37 Other intervertebral disc degeneration, lumbosacral region (principal); M43.17 Spondylolisthesis, lumbosacral region; M47.817 Spondylosis without myelopathy or radiculopathy, lumbosacral region; M41.87 Other forms of scoliosis, lumbosacral region
CPT/HCPCS: 72148

== ENCOUNTER 2021-09-03 13:37 | Outpatient (CLI) | payer BC ==
--- NOTE | 2021-09-03 16:21 | XRay Report ---
Right hand-4 views INDICATION: PRIMARY OSTEOARTHRITIS, UNSPECIFIED HAND. COMPARISON: None available. IMPRESSION: No acute osseous abnormality. Normal alignment. Degenerative changes throughout the leiva d, severe at the thumb CMC joint. Soft tissues are unremarkable. Signer Name: Ruben Gutierrez MD Signed: 09/03/2021 4:17 PM Workstation Name: [id number]
== END 2021-09-03 13:38 | disposition home or self-care (01) ==
LOC: XRAY 13:37
PROVIDERS: ATTEND Internal Medicine
DX: M19.042 Primary osteoarthritis, left hand (principal); M19.041 Primary osteoarthritis, right hand

== ENCOUNTER 2021-12-27 10:06 | Outpatient (CLI) | payer BC ==
[2021-12-27 12:22] LABS: Basophils # (Auto) 0.1 K/mm3 (0.0-0.1); Basophils % (Auto) 1.2 % (0.0-1.8); Eosinophils # (Auto) 0.1 K/mm3 (0.0-0.4); Eosinophils % (Auto) 3.5 % (0.0-4.3); Hemoglobin 15.1 gm/dl (11.8-15.2); Lymphocytes # (Auto) 1.2 K/mm3 (1.2-5.4); Mean Corpuscular HGB Conc 33 % (32-34); Mean Corpuscular Volume 94 fl (84-94); Monocytes # (Auto) 0.6 K/mm3 (0.0-0.8); Monocytes % (Auto) 13.4 % (0.0-7.3); Platelet Count 204 K/mm3 (140-440); Red Cell Distribution Width 13.7 % (13.2-15.2)
[2021-12-27 12:35] LABS: Alanine Aminotransferase 30 units/L (7-56); Albumin 4.9 g/dL (3.9-5); BUN/Creatinine Ratio 25; Blood Urea Nitrogen 25 mg/dL (9-20); Chol/HDL Ratio 4.79 %; HDL Cholesterol 53 mg/dL (40-59); Hemolysis Index 10; LDL Cholesterol,Direct 193 mg/dL (50-130)
[2021-12-30 12:18] LABS: Vitamin D, 25-OH, D2 <4 ng/mL
== END 2021-12-27 10:07 | disposition home or self-care (01) ==
LOC: LAB 10:06
PROVIDERS: ATTEND Internal Medicine
DX: E55.9 Vitamin D deficiency, unspecified (principal); R73.03 Prediabetes; E78.5 Hyperlipidemia, unspecified; R35.1 Nocturia; R53.83 Other fatigue
CPT/HCPCS: 36415; 80053; 80061; 82306; 83036; 84153; 84403; 84443; 85025

== ENCOUNTER 2022-03-16 06:50 | Outpatient (CLI) | payer BC ==
--- NOTE | 2022-03-16 11:28 | Magnetic Resonance Report ---
MR lumbar spine wo con INDICATION / CLINICAL INFORMATION: 66 years Male; M54.42 LUMBAGO WITH SCIATICA,LEFT SIDE. TECHNIQUE: Multisequence, multiplanar images of the lumbar spine were obtained. COMPARISON: The study is compared to previous MRI of 06/30/2021. FINDINGS: ALIGNMENT: There is 5 mm of anterolisthesis at L4-L5. There is mild curvature the lumbar spine, conve x toward the left. VERTEBRAE:There is continued notable endplate edema on the right at T12-L1. There is also mild genera tive endplate edema on the right at L4-5 and on the left at L5-S1. VISUALIZED SPINAL CORD: The distal spinal cord appears to demonstrate appropriate signal intensity an d terminates at L1-2. [id number] ANALYSIS: L1-2: No significant abnormality. L2-3: The disc bulge slightly flattens the ventral thecal sac at. The neural foramen are patent. L3-4: The broad-based disc bulge and facet joint arthropathy contribute to mild mild spinal stenosis. Additionally, there is moderate right and milder left neural foraminal narrowing. L4-5: The spondylosis and facet joint hypertrophy mildly deforms the thecal sac. There is mild encroa chment on the exiting L4 nerve root sheaths bilaterally. L5-S1: There is mild spondylosis without significant central spinal stenosis. There is mild left neur al foraminal narrowing. PARASPINAL SOFT TISSUES: No significant abnormality. ADDITIONAL FINDINGS: No epidural collections are identified. IMPRESSION: 1. There is 5 mm of anterolisthesis at L4-L5 with mild spinal stenosis. Additionally, the neural from narrowing mildly encroaches on the exiting L4 nerve root sheaths bilaterally. 2. There are advanced degenerative disc changes at L5-S1 there is only mild left neural foraminal santana rowing at this level. 3. There is milder spinal stenosis with moderate right and mild left foraminal narrowing at L3-4. Signer Name: Eliel Lemus MD Signed: 03/16/2022 11:24 AM Workstation Name: [id number]
== END 2022-03-16 06:51 | disposition home or self-care (01) ==
LOC: MRI 06:50
PROVIDERS: ATTEND Psychiatry & Neurology Neurology
DX: M43.17 Spondylolisthesis, lumbosacral region (principal); M54.42 Lumbago with sciatica, left side; M48.07 Spinal stenosis, lumbosacral region
CPT/HCPCS: 72148